=== PATIENT | male | born 1995 | race African-American/Black ===

== ENCOUNTER 2017-11-01 02:49 | Inpatient (IN) | payer MEDICAID ==
[~2017-11-01] VITALS: Ht 188 cm; Wt 67.8 kg
[2017-11-01 02:54] VITALS: Ht 188 cm; Wt 67.8 kg
[2017-11-01 03:20] LABS: BASOPHIL % 0.2 % (0-2); PLATELET COUNT 212 x10^3mcL (130-400)
[2017-11-01 03:21] LABS: RED CELL DISTRIBUTION WIDTH 14.8 % (11.5-14.5)
[2017-11-01 03:26] LABS: CALCIUM 9.2 mg/dL (8.5-10.1); CARBON DIOXIDE 25.7 mmol/L (21-32); CHLORIDE SERUM 101 mmol/L (98-107); CREATININE SERUM 1.2 mg/dL (0.7-1.3); GFR1 > 60 mL/min; GLUCOSE SERUM 107 mg/dL (74-106); POTASSIUM SERUM 3.5 mmol/L (3.5-5.1); SODIUM SERUM 137 mmol/L (136-145)
[2017-11-01 03:31] LABS: ALBUMIN 4.3 g/dL (3.4-5.0); ALKALINE PHOSPHATASE 70 U/L (46-116); ALT/SGPT 75 U/L (16-63); AST/SGOT 52 U/L (15-37); BILIRUBIN TOTAL 0.5 mg/dL (0.20-1.00); TOTAL PROTEIN, SERUM 7.8 g/dL (6.4-8.2)
[2017-11-01 04:37] LABS: AMPHETAMINE QUAL UR NONE DETECTED (See below)
[2017-11-01 10:56] LABS: T3 TOTAL 0.66 ng/mL
[2017-11-01 10:58] LABS: MAGNESIUM 2.3 mg/dL (1.8-2.4); PHOSPHOROUS 2.5 mg/dL (2.5-4.9)
[2017-11-01 11:07] LABS: FREE T4 0.93 ng/dL (0.76-1.46)
[2017-11-01 11:14] LABS: CHOLESTEROL/HDL RATIO 1.7; FREE THYROXINE INDEX 1.5 ug/dL (1.4-4.5); T4(THYROXINE) 4.2 ug/dL (4.7-13.3)
[2017-11-01 12:14] VITALS: BP 137/80
[2017-11-01 14:39] LABS: microscopic required? NO
[2017-11-01 15:15] LABS: UA SPECIFIC GRAVITY <=1.005 (1.005-1.035); urine erythrocyte NEGATIVE (NEGATIVE)
== END 2017-11-01 16:37 | disposition left against medical advice (07) | DRG 52 ==
LOC: ED 02:49 → DU 10:16 → MU 10:57
PROVIDERS: Emergency Medicine; Family Medicine
DX: G92 Toxic encephalopathy (principal); R45.851 Suicidal ideations; F12.10 Cannabis abuse, uncomplicated; F31.9 Bipolar disorder, unspecified; F17.210 Nicotine dependence, cigarettes, uncomplicated; R74.0 Nonspecific elevation of levels of transaminase and lactic acid dehydrogenase [LDH]; F10.10 Alcohol abuse, uncomplicated; Z68.1 Body mass index [BMI] 19.9 or less, adult
CPT/HCPCS: 83880; 84439; 99406; C9113; G0480; Q0092

== ENCOUNTER 2017-12-12 15:11 | Emergency (ER) | payer SELFPAY ==
[~2017-12-12] VITALS: Ht 188 cm; Wt 71.2 kg
[2017-12-12 15:22] VITALS: BP 149/76
== END 2017-12-12 18:26 | disposition home or self-care (01) ==
LOC: ED 15:11
DX: Z53.21 Procedure and treatment not carried out due to patient leaving prior to being seen by health care provider (principal)